=== PATIENT | male | born 1980 | race American Indian/Alaskan Native ===

== ENCOUNTER 2021-06-11 12:58 | Emergency (ER) | payer SELFPAY ==
[2021-06-11 14:15] VITALS: BP 136/96
--- NOTE | 2021-06-12 | Emergency Department Report ---
ED General Adult HPI - General Chief complaint: Extremity Problem,Nontraumatic Stated complaint: INFECTION IN (L) LEG Time Seen by Provider: 06/11/21 23:35 Source: patient Mode of arrival: Ambulatory Limitations: No Limitations - History of Present Illness Initial comments: 40-year-old male patient with history of lymphedema presents to emergency department with complaints of painful erythema to his left leg starting 2 days ago. Patient has been diagnosed with cellulitis on previous occasions and states his current symptoms are consistent with prior cellulitis. He is not currently on steroids or antibiotics. He has no known history of MRSA. No risk factors for MRSA identified. Denies fever, chills, paresthesias, numbness, weakness, bleeding, purulent drainage. Denies all other complaints at this time. - Related Data Previous Rx's Medication Instructions Recorded Last Taken Type cephALEXin [Keflex] 500 mg PO QID 7 Days capsule 06/12/21 Unknown Rx Allergies Allergy/AdvReac Type Severity Reaction Status Date / Time No Known Allergies Allergy Unverified 06/11/21 14:11 ED Review of Systems ROS: Stated complaint: INFECTION IN (L) LEG Other details as noted in HPI Other: GENERAL: Negative for fever, chills, weight change, anorexia, fatigue. ENT: Negative for ear pain, difficulty hearing, sore throat, nasal congestion, epistaxis. CARDIOVASCULAR: Negative for chest pain, palpitations, lower extremity swelling. PULMONARY: Negative for cough, dyspnea, wheezing, orthopnea, cyanosis. GASTROINTESTINAL: Negative for abdominal pain, nausea, vomiting, diarrhea, constipation. MUSCULOSKELETAL: Negative for joint pain, joint swelling, myalgias, back pain, neck pain. NEUROLOGICAL: Negative for headache, seizure, syncope, paresthesias, weakness. INTEGUMENTARY: Positive for pain, erythema, swelling HEMATOLOGICAL: Negative for hemoptysis, hematemesis, hematochezia, hematuria. PSYCHIATRIC: Negative for hallucinations, suicidal ideation, homicidal ideation, anxiety, depression. ED Past Medical Hx - Past Medical History Previous Medical History?: Yes Hx Asthma: Yes Additional medical history: lymphadema - Surgical History Past Surgical History?: Yes Additional Surgical History: left ankle - Medications Home Medications: Home Medications Medication Instructions Recorded Confirmed Last Taken Type cephALEXin [Keflex] 500 mg PO QID 7 Days capsule 06/12/21 Unknown Rx ED Physical Exam - General Limitations: No Limitations - Other Other exam information: General: Awake, appropriately interactive, no acute distress. Neck: Supple. Full range of motion intact. Cardiovascular: Lymphedematous changes to bilateral lower extremities. Pulmonary: No respiratory distress. Patient is speaking normally without use of accessory muscles. Skin: Tender area of warmth and erythema overlying the distal 1/3 of the left lower extremity. Pain is appropriately proportional to exam findings. Compartments are soft. No crepitus. No proximally streaking erythema. Ambulatory without assistance. Distal neurovascular and motor/sensory function intact. Neurological: No facial asymmetry. Speech is clear. Follows commands. Patient is alert and oriented. Musculoskeletal: Moves all four extremities spontaneously with normal range of motion. Psych: Cooperative. Appropriate mood and affect. ED Course Vital Signs 06/11/21 14:14 Temperature 98.1 F Pulse Rate 98 H Respiratory 18 Rate Blood Pressure 136/96 [Right] O2 Sat by Pulse 99 Oximetry ED Medical Decision Making - Radiology Data [id number]-va-[id number] ultrasound demonstrates cobblestoning throughout the distal 1/3 of the left lower extremity, consistent with cellulitis, no fluid collection visualized. - Medical Decision Making Differential diagnosis including but not limited to: cellulitis, erysipelas, necrotizing soft tissue infection, compartment syndrome, arterial insufficiency, deep vein thrombosis Patient presents to the emergency department with complaints of painful erythema to his left lower extremity, consistent with previous diagnosis of cellulitis. Symptoms are localized to the distal 1/3 of the left leg. Presence of cob blestoning confirmed with [id number]-ax-[id number] ultrasound. No known history of MRSA. No MRSA risk factors identified. Patient is afebrile, hemodynamically stable, neurovascularly intact, pain appropriately proportional to exam findings. Patient is not currently on antibiotics. No clinical indication for further diagnostic work-up and/or emergent administration of IV antibiotics. Patient is an appropriate candidate for outpatient antibiotics per current IDSA nonpurulent cellulitis guidelines. Patient will be discharged home with prescription for Keflex and referred to primary care provider for close outpatient follow-up. Emphasized the importance of returning to the emergency department for reassessment if the erythematous area continues to expand after 24 hours of antibiotic therapy. History, exam, diagnostic testing, and current condition do not suggest worrisome pathology to warrant further testing, continued ED treatment, admission, or surgical evaluation at this point. Given the low probability of a significant medical illness, it would be more likely to result in harm than benefit to perform further testing at this stage. Discussed findings, presumptive diagnosis, need for follow-up and specific signs/symptoms that should prompt immediate return to the emergency department. Instructions were explained in detail to the patient in addition to giving written discharge info rmation. Patient expressed understanding and was given the opportunity to ask questions, all of which were satisfactorily answered prior to discharge home. Critical care attestation.: If time is entered above; I have spent that time in minutes in the direct care of this critically ill patient, excluding procedure time. ED Disposition Clinical Impression: Left leg cellulitis Disposition: DC- TO HOME OR SELFCARE Is pt being admited?: No Does the pt Need Aspirin: No Condition: Stable Instructions: Cellulitis, Adult, [id number] Additional Instructions: Take Tylenol every 4 hours and Motrin every 8 hours as needed for pain. Take Keflex with food as directed. Increase your dietary intake of probiotic rich foods while taking this medication. Keep left leg elevated as often as possible to reduce swelling. You must follow-up with primary care provider this week for re-evaluation and to assess response to antibiotic therapy. Call tomorrow to schedule an appointment. See referral information below. Return to the emergency department immediately for new or worsening symptoms. Specifically, return to the emergency department immediately for fever, vomiting, mental status changes, numbness, worsening pain, or any other concerns. Additionally, return to the emergency department if the area of redness continues to expand 24 hours after starting the antibiotic. Prescriptions: cephALEXin [Keflex] 500 mg PO QID 7 Days capsule Referrals: GEMA ALBERT MD [Staff Physician] - 3-5 Days [facility] [Outside] - 3-5 Days [facility] [Outside] - 3-5 Days [facility] [Outside] - 3-5 Days [facility] [Provider Group] - 3-5 Days Forms: Work/School Release Form(ED) Time of Disposition: 00:00
== END 2021-06-12 00:20 | disposition home or self-care (01) ==
LOC: ED 12:58
DX: L03.116 Cellulitis of left lower limb (principal); J45.909 Unspecified asthma, uncomplicated
CPT/HCPCS: 99281

== ENCOUNTER 2021-06-15 05:03 | Emergency (ER) | payer SELFPAY ==
[2021-06-15 05:09] VITALS: BP 165/107
[2021-06-15 08:07] LABS: Bilirubin,Urine NEG (Negative); Blood,Urine NEG (Negative); Color,Urine Yellow (Yellow); Mucus,Urine FEW /HPF; Protein,Urine <15 mg/dL mg/dL (Negative)
--- NOTE | 2021-06-15 08:29 | Emergency Department Report ---
ED Back Pain/Injury HPI - General Chief Complaint: Back Pain/Injury Stated Complaint: BACK PAIN Time Seen by Provider: 06/15/21 07:53 Source: patient Limitations: No Limitations - History of Present Illness Initial Comments: 40-year-old obese -[place]namese male presents to the emergency room complaining of right side lower back pain for couple of days. Patient denies any injury to his back. He states that the pain is worse when he lies on his right side and then when he tries to get up. Patient states he has been using icy hot, [id number] Biofreeze has been taken ibuprofen without much relief. Patient states that he was seen here on the and was being treated for his left leg infection. Patient states he has an appointment on the of this month with the primary care provider. Patient denies any testicular pain no hematuria no dysuria. MD Complaint: back pain Similar Symptoms Previously: No Radiation: flank (Right side) Severity: severe Severity scale (0 -10): 8 Quality: sharp, stabbing Consistency: intermittent Improves With: none Worsens With: movement (Moving to get up), supine (On the right side) Associated Symptoms: denies other symptoms Treatments Prior to Arrival: heat therapy, NSAIDS - Related Data Previous Rx's Medication Instructions Recorded Last Taken Type cephALEXin [Keflex] 500 mg PO QID 7 Days capsule 06/12/21 Unknown Rx Diclofenac Sodium 75 mg PO Q12H 7 Days #14 tablet. 06/15/21 Unknown Rx methOCARBAMOL [Robaxin TAB] 500 mg PO BID 7 Days #14 tab 06/15/21 Unknown Rx Allergies Allergy/AdvReac Type Severity Reaction Status Date / Time No Known Allergies Allergy Unverified 06/11/21 14:11 ED Review of Systems ROS: Stated complaint: BACK PAIN Other details as noted in HPI Comment: All other systems reviewed and negative ED Past Medical Hx - Past Medical History Hx Asthma: Yes Additional medical history: lymphadema - Surgical History Additional Surgical History: left ankle - Medications Home Medications: Home Medications Medication Instructions Recorded Confirmed Last Taken Type cephALEXin [Keflex] 500 mg PO QID 7 Days capsule 06/12/21 Unknown Rx Diclofenac Sodium 75 mg PO Q12H 7 Days #14 tablet. 06/15/21 Unknown Rx methOCARBAMOL [Robaxin TAB] 500 mg PO BID 7 Days #14 tab 06/15/21 Unknown Rx ED Physical Exam - General Limitations: No Limitations General appearance: alert, in no apparent distress - Head Head exam: Present: atraumatic, normocephalic - Eye Eye exam: Present: normal appearance - ENT ENT exam: Present: mucous membranes moist - Neck Neck exam: Present: normal inspection - Respiratory Respiratory exam: Present: normal lung sounds bilaterally. Absent: respiratory distress, chest wall tenderness, accessory muscle use - Cardiovascular Cardiovascular Exam: Present: regular rate, normal rhythm. Absent: systolic murmur, diastolic murmur, rubs, gallop - GI/Abdominal GI/Abdominal exam: Present: soft, normal bowel sounds - Rectal Rectal exam: Present: deferred - Extremities Exam Extremities exam: Present: normal inspection - Back Exam Back exam: Present: normal inspection, full ROM. Absent: muscle spasm, paraspinal tenderness, vertebral tenderness - Neurological Exam Neurological exam: Present: alert, oriented X3, normal gait - Psychiatric Psychiatric exam: Present: normal affect, normal mood - Skin Skin exam: Present: warm, dry, intact, normal color. Absent: rash ED Course Vital Signs 06/15/21 05:08 Temperature 98.0 F Pulse Rate 91 H Respiratory 22 Rate Blood Pressure 165/107 O2 Sat by Pulse 99 Oximetry ED Medical Decision Making - Radiology Data Radiology results: report reviewed [facility] [address] [place] [address] XRay Report Signed Patient: CESLO SNELL MR#: [id number] : 1980 Acct:[id number] Age/Sex: 40 / M ADM Date: 06/15/21 Loc: ED Attending Dr: Ordering Physician: RADHA RIVER Date of Service: 06/15/21 Procedure(s): XR spine lumbosacral 2-3V Accession Number(s): [id number] cc: RADHA RIVER Fluoro Time In Minutes: LUMBOSACRAL SPINE 3 VIEWS INDICATION: Back pain acute. COMPARISON: None. IMPRESSION: There is mild levocurvature of the lumbar spine on the frontal view. Normal alignment on the lateral view. No significant discogenic DJD or facet arthropathy. No acute osseous or soft tissue abnormality. Signer Name: William Rapp Jr, MD Signed: 06/15/2021 9:21 AM Workstation Name: [id number] Transcribed By: TTR Dictated By: WILLIAM RAPP JR, MD Electronically Authenticated By: WILLIAM RAPP JR, MD Signed Date/Time: 06/15/21920 DD/ 0 TD/TT: - Medical Decision Making 40-year-old obese -[place]namese male presents to the emergency room complaining of right side lower back pain for couple of days. Patient denies any injury to his back. He states that the pain is worse when he lies on his right side and then when he tries to get up. Patient states he has been using icy hot, [id number]-[id number] Biofreeze has been taken ibuprofen without much relief. Patient states that he was seen here on the and was being treated for his left leg infection. Patient states he has an appointment on the of this month with the primary care provider. Patient denies any testicular pain no hematuria no dysuria. 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 Urinalysis is negative for any acute abnormalities x-ray of the back is negative for any acute abnormalities. We will place patient on diclofenac's Robaxin and to follow-up with his primary care provider Critical care attestation.: If time is entered above; I have spent that time in minutes in the direct care of this critically ill patient, excluding procedure time. ED Disposition Clinical Impression: Back pain Disposition: HOME / SELF CARE / HOMELESS Is pt being admited?: No Does the pt Need Aspirin: No Condition: Stable Instructions: Preventing Back Pain for New Parents Additional Instructions: X-rays and urine is negative for any acute findings. Recommend pain medication muscle relaxant and keep your appointment with your primary care provider on 27 June. Be sure to increase your fluid intake advance your diet as tolerated. Prescriptions: Diclofenac Sodium 75 mg PO Q12H 7 Days #14 tablet.dr Ramirez [Robaxin TAB] 500 mg PO BID 7 Days #14 tab Referrals: PRIMARY CARE, [Primary Care Provider] - 3-5 Days Time of Disposition: 09:47
--- NOTE | 2021-06-15 09:26 | XRay Report ---
LUMBOSACRAL SPINE 3 VIEWS INDICATION: Back pain acute. COMPARISON: None. IMPRESSION: There is mild levocurvature of the lumbar spine on the frontal view. Normal alignment on the lateral view. No significant discogenic DJD or facet arthropathy. No acute osseous or soft tis xu abnormality. Signer Name: William Rapp Jr, MD Signed: 06/15/2021 9:21 AM Workstation Name: [id number]
== END 2021-06-15 10:00 | disposition home or self-care (01) ==
LOC: ED 05:03
DX: M54.5 Low back pain (principal); J45.909 Unspecified asthma, uncomplicated; Z79.899 Other long term (current) drug therapy; Z98.890 Other specified postprocedural states
CPT/HCPCS: 72100; 81001

== ENCOUNTER 2022-06-19 09:00 | Emergency (ER) | payer SELFPAY ==
[2022-06-19] MEDS ORDERED: HYDROcodone/ACETAMINOPHEN 5-325 MG TAB PO ONE (11:11)
[2022-06-19] MEDS ORDERED: CYCLOBENZAPRINE 10 MG TAB PO ONE (11:12)
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
[2022-06-19 13:22] VITALS: BP 140/86
== END 2022-06-19 13:22 | disposition home or self-care (01) ==
LOC: ED 09:00
DX: M25.572 Pain in left ankle and joints of left foot (principal); I10 Essential (primary) hypertension; J45.909 Unspecified asthma, uncomplicated; Z79.899 Other long term (current) drug therapy; V89.2XXA Person injured in unspecified motor-vehicle accident, traffic, initial encounter; Y93.89 Activity, other specified; Y92.89 Other specified places as the place of occurrence of the external cause; Y99.8 Other external cause status
CPT/HCPCS: 99283